=== PATIENT | male | born 1970 | race Caucasian/White ===

== ENCOUNTER 2021-04-22 12:51 | Emergency (ER) | payer BC, SELFPAY ==
[2021-04-22] VITALS (15 sets, daily range): BP systolic 140–171; BP diastolic 73–92; PULSE 82–104; RESP 18–20; TEMP 37–37.4; O2SAT 87–97
--- NOTE | 2021-04-22 13:47 | ED.GENADUL_ITS ---
Discharge Plan Disposition Patient Disposition: HOME Condition: Improving Discharge Details Clinical Impression: Pneumonia Primary Care Provider: Jorge Luis Potts ED Provider: Edward Navarro Home Meds and New Rx's Prescriptions: New cefdinir 300 mg capsule 300 mg PO Q12H 10 Days Qty: 20 RF: 0 Continued insulin lispro 100 unit/mL Insulin Pen See Protocol sliding scale dose SUBCUT QMEALS RF: 0 Lantus Solostar U-100 Insulin 100 unit/mL (3 mL) Insulin Pen 16 unit SUBCUT QPM RF: 0 montelukast [Singulair] 10 mg Tablet 10 mg PO DAILY RF: 0 Discharge Instructions Instructions: Pneumonia (ED) Additional Instructions: As we discussed, your COVID-19 test today was negative. Your chest x-ray does show evidence of pneumonia. You were given an initial IV dose of antibiotics and should start antibiotics tomorrow morning. We will ask our care management team to arrange a follow-up for you at [facility] for recheck. As we discussed I would advise obtaining a [id number] finger pulse oximeter. You may check home oxygen levels once or twice a day. Measurements should be taken indoors with the device on the middle or ring finger, no artificial nails or nail malay. Extremity should be warm prior to measurement. Do not except the first number that appears on the screen but observe for 30 to 60 seconds to identify the most common measurement. Return if your resting oxygen drops below 90% and is confirmed as such on a separate reading 10 minutes later. Home to rest this evening. Small, frequent sips of fluids to maintain hydration. Medical Decision Making 51-year-old male, type I diabetic, presents with 10 to 11 days of fever, chills, body ache, cough, decreased p.o. intake. Notes that his glucose has been running slightly high. He arrives with pulse of 104, blood pressure 160/79. His presentation is concerning for pneumonitis, viral versus bacterial. IV access established, given 2 L of fluid, Covid test obtained and patient referred for x-ray. Patient is a white count of 8.5, hematocrit 36, platelets 410. Chemistries reassuring with sodium 134, testing 4.4, chloride 97, bicarb 31, BUN 21, creatinine 0.9. SARS Cov 2 PCR negative. Chest x-ray does reveal diffuse linear opacities throughout the lung mustafa. I discussed with the patient that I am concerned this may still be a viral pneumonitis despite the negative Covid testing. I do feel compelled to treat him for walking pneumonia and is given ceftriaxone in the ED and then I will place him on a course of oral cephalosporin. Will arrange a follow-up for him in clinic in [place] for recheck. Discussed with him home oxygen monitoring with an [id number] oximeter. HPI General Mode of arrival: ambulatory . Date/Time Provider Initiated Documentation: 04/22/21 12:58 . Limitations to Documentation: no limitations . Information obtained by: patient . History of Present Illness 51 year old M presents to the emergency department with the chief complaint of 10 days of cough, body aches, fever, described as moderate, Quality is described as dull and constant, Patient reports no radiation. and it has been intermittent. No relieving factors improve symptom(s), No exacerbating factors reported . Patient notes cough, fever/chills and loss of appetite; denies chest pain, shortness of breath and syncope. Patient did receive the following treatments prior to arrival, NSAID Related Data Home Medications Medication Instructions Recorded Confirmed Lantus Solostar U-100 Insulin 16 unit SUBCUT QPM 04/22/21 04/22/21 cefdinir 300 mg PO Q12H 10 Days #20 cap 04/22/21 insulin lispro See Protocol SUBCUT QMEALS 04/22/21 04/22/21 montelukast [Singulair] 10 mg PO DAILY 04/22/21 04/22/21 Previous Rx's Medication Instructions Recorded cefdinir 300 mg PO Q12H 10 Days #20 cap 04/22/21 Allergies Allergy/AdvReac Type Severity Reaction Status Date / Time No Known Allergies Allergy Unverified 04/22/21 13:51 General Stated Complaint: RespSymp ELISEO: 3 Review of Systems Narrative: 8 systems reviewed: Fully immunized against COVID-19, glucose has been running high. Notes fever, chills, body ache. No known sick contacts. [facility] Social History Smoking/Tobacco Use Status: Never Smoking risk assessment performed?: Yes Alcohol Intake: never Exam Narrative Exam Narrative: GEN: awake, alert, oriented 3. Pleasant, well groomed, interactive. HEAD: Normocephalic, atraumatic ENT: Mucous membranes dry, oropharynx erythematous, no swelling or exudate, tympanic membranes visualized bilaterally., External ear exam unremarkable EYES: PERRL, EOMI NECK: Full ROM, no BLAS, no menigismus CHEST/RESP: Nontender, clear to auscultation bilateral, no wheeze/rhonchi/rales CARDIOVASCULAR: Regular and tachycardic, no murmur, rub nafisa. 2+ Rad pulse bilateral ABDOMEN: Soft, nontender, no mass. +Bowel sounds EXT: Full ROM, no edema, no rash Neuro: Grossly normal neurologic exam, conversant, interactive. Psych: Speech fluent, thoughts congruent, affect normal Course Vital Signs Vital signs: Vital Signs Temperature 37.2 C 04/22/21 13:17 Pulse 104 H 04/22/21 13:17 Respiratory Rate 20 04/22/21 13:17 Blood Pressure 160/79 H 04/22/21 13:17 Pulse Oximetry 94 04/22/21 13:17 Temperature 37.2 C 04/22/21 13:17 Temperature Source Skin 04/22/21 13:17 Pulse 104 H 04/22/21 13:17 Respiratory Rate 20 04/22/21 13:17 Respiratory Effort 04/22/21 13:24 Blood Pressure 160/79 H 04/22/21 13:17 Blood Pressure Position Sitting 04/22/21 13:17 Pulse Oximetry 94 04/22/21 13:17 Oxygen Delivery Method Room Air 04/22/21 13:17 Oxygen Flow Rate 0 04/22/21 13:17 Pain Level 3 04/22/21 13:17
[2021-04-22] MEDS: Normal Saline 1,000 ML 1000 ML IV ×2 (14:03→15:58)
[2021-04-22 14:17] LABS: Source Nasal/Nares
[2021-04-22 14:20] LABS: Abs Immature Grans 0.07 10^3/uL (0.0-0.06); Absolute Basophil Count 0.03 10^3/uL (0.0-0.2); Absolute Eosinophil Count 0.18 10^3/uL (0.0-0.7); Absolute Lymphocyte Count 1.29 10^3/uL (1.2-3.4); Absolute Monocyte Count 0.62 10^3/uL (0.1-0.8); Absolute Neutrophil Count 6.31 10^3/uL (1.2-6.7); Basophils % 0.4; Eosinophils % 2.1; HCT 36.1 % (40.0-50.0); HGB 12.5 g/dL (13.5-17.5); Immature Grans % 0.8; Lymphocytes % 15.2; MCH 29.6 pg (27.0-33.0); MCHC 34.6 % (32.0-36.0); MCV 85.5 fL (80-95); MPV 9.1 fL (8.0-11.0); Monocytes % 7.3; Neutrophils % 74.2; Nucleated RBC 0 %; Platelet Count 410 10^3/uL (130-400); RBC 4.22 10^6/uL (4.36-5.78); RDW 11.4 % (11.8-14.1); RDW-SD 35.4 fL
[2021-04-22 14:33] LABS: ALT 41 U/L (16-63); AST 52 U/L (15-37); Albumin 2.6 g/dL (3.4-5.0); Alkaline Phosphatase 114 U/L (46-116); Anion Gap 5.4 mmol/L (3-11); BUN 21 mg/dL (7-18); Bilirubin, Total 0.9 mg/dL (0.2-1.0); CO2 31.6 mmol/L (21.0-32.0); CREATININE 0.9 mg/dL (0.70-1.30); Calcium 8.8 mg/dL (8.5-10.1); Chloride 97 mmol/L (98-107); Glucose 176 mg/dL (74-106); Potassium 4.4 mmol/L (3.5-5.1); Sodium 134 mmol/L (136-145); Total Protein 7.4 g/dL (6.4-8.2)
--- NOTE | 2021-04-22 15:30 | DI.RAD_ITS ---
Exam(s) XR CHEST 2V PA LATERAL EXAM: XR CHEST 2V PA LATERAL CLINICAL HISTORY: cough. TECHNIQUE: 2D digital imaging was performed. COMPARISON: No exams were available for comparison FINDINGS: Heart size is normal. The mediastinum is not widened. Bilateral hyperinflation. Increased markings throughout both lung mustafa, relatively symmetrical. N o pleural effusions. No Rosemarie B lines IMPRESSION: Bilateral interstitial infiltrates.Possible chronic but also consider acute pathology including pneum onitis. Recommend appropriate testing. DATA REPOSITORY: RADIATION DOSE DELIVERED:
[2021-04-22 15:34] LABS: COVID-19 PCR Negative (Negative)
--- NOTE | 2021-04-22 16:26 | NUR.NOTE ---
To DI per cart with transporterNursing Note:
--- NOTE | 2021-04-22 16:41 | DI.VRAD_ITS ---
PROCEDURE INFORMATION: Exam: XR Chest Exam date and time: 04/22/2021 3:44 PM Age: 51 years old Clinical indication: Cough TECHNIQUE: Imaging protocol: XR of the chest. Views: 2 views. COMPARISON: No relevant prior studies available. FINDINGS: Lungs: There are diffuse linear opacities throughout the bilateral lung mustafa. Pleural spaces: No pleural effusion. No pneumothorax. Heart/Mediastinum: Unremarkable. No cardiomegaly. Bones/joints: Unremarkable. IMPRESSION: Diffuse linear opacities throughout the bilateral lung mustafa, concerning for pneumonia, which could be viral in nature. Correlate with laboratory testing. Differential diagnosis also includes pulmonary edema. Clinical correlation recommended. Dictated and Authenticated by: Geeta Camargo MD. Ordering:NORMA Leon MD
[2021-04-22] MEDS: Ketorolac 15 MG/ML VIAL IVP (17:30)
[2021-04-22] MEDS: Dexamethasone 4 MG/ML VIAL 8 MG IVP (17:32)
[2021-04-22] MEDS: cefTRIAXone 1 GM/50 ML BAG IVPB (17:35)
== END 2021-04-22 17:26 | disposition home or self-care (01) ==
PROVIDERS: Emergency Provider Emergency Medicine; PCP Family Medicine
DX: J18.9 Pneumonia, unspecified organism (principal); Z20.822 Contact with and (suspected) exposure to COVID-19; E10.9 Type 1 diabetes mellitus without complications
CPT/HCPCS: 36415; 36416; 80053; 82962; 87635; 87880; 96361; 96365; 96375; 99284; 71046; 85025; 87081; J0696; J1100; J1885

== ENCOUNTER 2021-04-22 20:54 | Emergency (ER) | payer BC, SELFPAY ==
[2021-04-22] VITALS (8 sets, daily range): BP systolic 154; BP diastolic 76; PULSE 90; RESP 18; TEMP 36.8; O2SAT 91–96
--- NOTE | 2021-04-22 21:23 | ED.GENADUL_ITS ---
Discharge Plan Disposition Patient Disposition: HOME Condition: Stable Discharge Details Clinical Impression: Pneumonia Primary Care Provider: Jorge Luis Potts ED Provider: Makayla Hart Home Meds and New Rx's Prescriptions: No Action insulin lispro 100 unit/mL Insulin Pen See Protocol sliding scale dose SUBCUT QMEALS RF: 0 Lantus Solostar U-100 Insulin 100 unit/mL (3 mL) Insulin Pen 16 unit SUBCUT QPM RF: 0 montelukast [Singulair] 10 mg Tablet 10 mg PO DAILY RF: 0 cefdinir 300 mg capsule 300 mg PO Q12H 10 Days Qty: 20 RF: 0 Discharge Instructions Instructions: Pneumonia (ED) Additional Instructions: At this time your oxygen saturation on room air has not dropped lower than 92%. Please take Tylenol or ibuprofen every 4-6 hours as needed for fever. Continue to take the antibiotic as previously prescribed. Follow up with primary care provider in 3-5 days. Return to ED sooner if any worsening or concerns. Increase oral fluids. Use the albuterol inhaler 1 or 2 puffs every 4-6 hours as needed for shortness of breath and/or wheezing. Do not use it more than 4 times in 24-hour.. If you feel you need to use the albuterol inhaler greater than 4 times please be seen sooner or return to the emergency department. Please rest. If you continue to feel worse you may choose to get retested for Covid. He did have a negative Covid swab here today. Referrals: Jorge Luis Potts MD [Primary Care Provider] - 5 days Medical Decision Making 51-year-old male presents to the ER for the second time today with chief complaint of low O2 sat at home using a purchased pulse oximeter, fever of 103. Patient states that he got discharged from the emergency room earlier today after being diagnosed with pneumonia and took a shower. He reported some increased diaphoresis and shortness of breath. Pulse oximeter was reading 84% to 88% on room air. He did take some Tylenol at home prior to arrival. Upon presentation to my initial exam he is afebrile, heart rate is 90 O2 sat is ranging from 92 to 96% on room air. Patient is anxious and tearful. He did have a previous negative Covid swab here he is fully vaccinated against Covid. He is upset about why he got pneumonia. At this time we will road test patient with oximeter and observe O2 saturation. We will give patient albuterol inhaler to see if this improves his oxygenation. 2210: Patient was road tested maintain oxygen saturation of 94% room air. Will give patient inhaler to go. I did discuss home care with him he verbalizes understanding. I did discuss taking Tylenol or ibuprofen every 2-4 hours as needed for fever. Patient verbalizes understanding and would rather go home versus be admitted. I did offer a pulse oximeter of ours to give to the patient. A I did discuss at length home care with patient and all their questions significant other. All other questions were answered to the best my ability they do verbalize understanding and are in agreement with plan. I did discuss rest, fluids, v itamin D, zinc, using albuterol inhaler every 4-6 hours, Tylenol ibuprofen. Checking O2 couple times a day. I also did discuss strict return instructions. Patient was observed in the emergency department for almost 2 hours with O2 sat greater than 90% consistently. HPI General Mode of arrival: ambulatory . Date/Time Provider Initiated Documentation: 04/22/21 20:56 . Limitations to Documentation: no limitations . Information obtained by: patient, family (Friend ER MD called in prior to patient return), RN notes reviewed and old records reviewed . HPI Narrative: 51-year-old male presents to the ER for the second time today with chief complaint of low O2 sat at home using a purchased pulse oximeter, fever of 103. Patient states that he got discharged from the emergency room earlier today after being diagnosed with pneumonia and took a shower. He reported some increased diaphoresis and shortness of breath. Pulse oximeter was reading 84% to 88% on room air. He did take some Tylenol at home prior to arrival. Upon presentation to my initial exam he is afebrile, heart rate is 90 O2 sat is ranging from 92 to 96% on room air. Patient is anxious and tearful. He did have a previous negative Covid swab here he is fully vaccinated against Covid. He is upset about why he got pneumonia. Related Data Home Medications Medication Instructions Recorded Confirmed Lantus Solostar U-100 Insulin 16 unit SUBCUT QPM 04/22/21 04/22/21 cefdinir 300 mg PO Q12H 10 Days #20 cap 04/22/21 04/22/21 insulin lispro See Protocol SUBCUT QMEALS 04/22/21 04/22/21 montelukast [Singulair] 10 mg PO DAILY 04/22/21 04/22/21 Previous Rx's Medication Instructions Recorded cefdinir 300 mg PO Q12H 10 Days #20 cap 04/22/21 Allergies Allergy/AdvReac Type Severity Reaction Status Date / Time No Known Allergies Allergy Unverified 04/22/21 13:51 General Stated Complaint: RespSymp ELISEO: 3 Review of Systems All systems reviewed & are unremarkable except as noted in HPI and below Constitutional Constitutional: Reports excessive sweating and Reports fever(s) Cardiovascular Cardiovascular: Reports dyspnea on exertion Respiratory Respiratory: Reports dyspnea on exertion Comments: Diagnosed with pneumonia Endocrine Endocrine: Reports excessive sweating [facility] Social History Smoking/Tobacco Use Status: Never Smoking risk assessment performed?: Yes Alcohol Intake: never Drug use: Never Substance use type: does not use Do you feel safe at home: Yes Do you feel safe in your relationship?: Yes Exam Narrative Exam Narrative: Constitutional: Alert and oriented x3. Appears stated age. Normal body habitus. Head: Normocephalic, no trauma. Eyes: Pupils PERRLA, Red reflex noted, EOM's intact. Eyelids symmetrical without lesions, discharge, or swelling. ENT: Bilateral TM's WNL, External ear normal to inspection, no mastoid TTP, swelling, or erythema, Nasal turbinates WNL, no nasal discharge. Normal dentition, Posterior pharynx WNL, no exudate. Chest: RRR, Normal S1, S2, distal pulses intact. Resp: Lungs clear to auscultation bilaterally, no wheezes, rales, or rhonchi. Musculoskeletal: Normal gait, 5/5 strength to all four extremities. Skin: No suspicious rashes or lesions. Capillary refill less than 2 sec. Neurologic: Cranial nerves II-XII intact. Alert and oriented x 3. DTR's intact. Hematologic/Lymphatic: No ecchymosis, no lymphadenopathy. Course Vital Signs Vital signs: Vital Signs Temperature 36.8 C 04/22/21 20:58 Pulse 90 04/22/21 20:58 Respiratory Rate 18 04/22/21 20:58 Blood Pressure 154/76 H 04/22/21 20:58 Pulse Oximetry 92 04/22/21 20:58 Temperature 36.8 C 04/22/21 20:58 Temperature Source Oral 04/22/21 20:58 Pulse 90 04/22/21 20:58 Respiratory Rate 18 04/22/21 20:58 Blood Pressure 154/76 H 04/22/21 20:58 Blood Pressure Position Sitting 04/22/21 20:58 Pulse Oximetry 92 04/22/21 20:58 Oxygen Delivery Method Room Air 04/22/21 20:58 Oxygen Flow Rate 0 04/22/21 20:58 Pain Level 0 04/22/21 20:58
== END 2021-04-22 22:40 | disposition home or self-care (01) ==
PROVIDERS: Emergency Provider Registered Nurse Emergency; PCP Family Medicine
DX: J18.9 Pneumonia, unspecified organism (principal); R50.9 Fever, unspecified
CPT/HCPCS: 99283

== ENCOUNTER 2021-04-28 18:04 | Outpatient (REF) | payer BC, SELFPAY ==
[2021-04-30 15:48] LABS: COVID-19 RT-PCR UVMMC Result Negative (Negative)
== END 2021-04-28 18:05 | disposition home or self-care (01) ==
LOC: NCHCN 18:04
PROVIDERS: PCP Family Medicine; Visit Provider Family Medicine
DX: R53.83 Other fatigue (principal); Z20.822 Contact with and (suspected) exposure to COVID-19
CPT/HCPCS: U0003

== ENCOUNTER 2021-04-30 03:33 | Outpatient (CLI) | payer BC, SELFPAY ==
[2021-04-30 12:18] LABS: ESR 29 mm/hr (0-15)
[2021-04-30 12:19] LABS: HCT 40.5 % (40.0-50.0); HGB 13.8 g/dL (13.5-17.5); MCH 29.6 pg (27.0-33.0); MCHC 34.1 % (32.0-36.0); MCV 86.9 fL (80-95); MPV 8.7 fL (8.0-11.0); Nucleated RBC 0 %; RBC 4.66 10^6/uL (4.36-5.78); RDW 11.4 % (11.8-14.1); RDW-SD 36.5 fL; WBC 8.45 10^3/uL (4.4-10.8)
[2021-04-30 13:04] LABS: Absolute Basophil Count 0.08 10^3/uL (0.0-0.2); Absolute Eosinophil Count 0.51 10^3/uL (0.0-0.7); Absolute Lymphocyte Count 2.37 10^3/uL (1.2-3.4); Absolute Monocyte Count 0.93 10^3/uL (0.1-0.8); Absolute Neutrophil Count 4.56 10^3/uL (1.2-6.7); Atypical Lymphocytes % 12; Diff Comment Manual Differential; Platelet Count 664 10^3/uL (130-400); RBC Morphology Normal
[2021-04-30 13:15] LABS: ALT 29 U/L (16-63); AST 36 U/L (15-37); Albumin 2.6 g/dL (3.4-5.0); Alkaline Phosphatase 114 U/L (46-116); Anion Gap 5.5 mmol/L (3-11); BUN 24 mg/dL (7-18); Bilirubin, Total 0.6 mg/dL (0.2-1.0); C-Reactive Protein 1.71 mg/dL (0.0-0.3); CO2 31.5 mmol/L (21.0-32.0); CREATININE 1.1 mg/dL (0.70-1.30); Calcium 9.6 mg/dL (8.5-10.1); Chloride 99 mmol/L (98-107); Glucose 157 mg/dL (74-106); Potassium 4.5 mmol/L (3.5-5.1); Sodium 136 mmol/L (136-145); Total Protein 7.4 g/dL (6.4-8.2)
[2021-05-01 11:13] LABS: Lyme Ab w Rflx to Lyme Confirm Negative (Negative)
[2021-05-02 18:58] LABS: Anaplasma phagocytophilum Negative (Negative); B. miyamotoi PCR Negative (Negative); Babesia divergens/MO-1 Negative (Negative); Babesia duncani Negative (Negative); Babesia microti Negative (Negative); Ehrlichia chaffeensis Negative (Negative); Ehrlichia ewingii/canis Negative (Negative); Ehrlichia muris eauclairensis Negative (Negative)
== END 2021-04-30 03:34 | disposition home or self-care (01) ==
LOC: LBO 03:33
PROVIDERS: PCP Family Medicine; Visit Provider Family Medicine
DX: Z20.822 Contact with and (suspected) exposure to COVID-19 (principal); R50.9 Fever, unspecified; R53.83 Other fatigue
CPT/HCPCS: 36410; 80053; 85652; 87040; 87798; 85025; 86140; 86618

== ENCOUNTER 2021-07-15 15:01 | Outpatient (REF) | payer BC, SELFPAY ==
--- NOTE | 2021-07-15 14:00 | SKI_PTH ---
PATIENT: Jim Wesley LOC: [facility] U#:[id number] AGE/SX: 51/M ROOM: RE07/15/[address]: Krzysztof Fortune : 1970 BED: DIS: 07/15/2021 SPEC #: [id number] RECD: 07/16/21 12:49 STATUS: OMAYRA REMiguel Angel #: [id number] JOHNSON: 07/15/21 14:[address]: Krzysztof Fortune DEPT: Surgical Specimen RECD BY: Vera Valdez ENTERED: 07/16/21 12:49 SP TYPE: HELLEN POSEY DR: Amaury Lawrence DNP Tissues: 1 - SKIN BIOPSY(SHAVE/PUNCH) Procedures: SKIN LEVEL 4 Comments: [id number]
[2021-07-15 21:38] LABS: Abs Immature Grans 0.16 10^3/uL (0.0-0.06); Absolute Basophil Count 0.03 10^3/uL (0.0-0.2); Absolute Eosinophil Count 0.01 10^3/uL (0.0-0.7); Absolute Lymphocyte Count 1.76 10^3/uL (1.2-3.4); Absolute Monocyte Count 0.56 10^3/uL (0.1-0.8); Absolute Neutrophil Count 5.85 10^3/uL (1.2-6.7); Basophils % 0.4; Eosinophils % 0.1; HCT 40.4 % (40.0-50.0); Immature Grans % 1.9; MCH 29.7 pg (27.0-33.0); MCHC 34.7 % (32.0-36.0); MCV 85.6 fL (80-95); MPV 9.9 fL (8.0-11.0); Monocytes % 6.7; Neutrophils % 69.9; Nucleated RBC 0 %; Platelet Count 442 10^3/uL (130-400); RBC 4.72 10^6/uL (4.36-5.78); RDW-SD 37.4 fL; WBC 8.37 10^3/uL (4.4-10.8)
[2021-07-17 12:27] LABS: HIV-1/2 Ag & Ab Screen Reactive (Negative)
[2021-07-17 13:39] LABS: COVID-19 RT-PCR UVMMC Result Negative (Negative)
[2021-07-23 15:18] LABS: HIV 1 Ab Diff Positive (Negative)
[2021-07-23 15:19] LABS: HIV 2 Ab Diff Negative (Negative)
== END 2021-07-15 15:02 | disposition home or self-care (01) ==
LOC: NCHCN 15:01
PROVIDERS: PCP Nurse Practitioner Family; Visit Provider Family Medicine
DX: R09.82 Postnasal drip (principal); Z20.822 Contact with and (suspected) exposure to COVID-19; Z11.4 Encounter for screening for human immunodeficiency virus [HIV]; B20 Human immunodeficiency virus [HIV] disease; C46.0 Kaposi's sarcoma of skin
CPT/HCPCS: 86701; 86702; 87389; U0003; 85025; 88305

== ENCOUNTER 2021-07-16 02:59 | Outpatient (REF) | payer BC, SELFPAY ==
[2021-07-16 15:47] LABS: Abs Immature Grans 0.36 10^3/uL (0.0-0.06); Absolute Basophil Count 0.04 10^3/uL (0.0-0.2); Absolute Eosinophil Count 0.04 10^3/uL (0.0-0.7); Absolute Lymphocyte Count 1.62 10^3/uL (1.2-3.4); Absolute Monocyte Count 0.41 10^3/uL (0.1-0.8); Absolute Neutrophil Count 4.69 10^3/uL (1.2-6.7); Basophils % 0.6; Eosinophils % 0.6; HCT 38.7 % (40.0-50.0); HGB 13.4 g/dL (13.5-17.5); Lymphocytes % 22.6; MCHC 34.6 % (32.0-36.0); MCV 86.8 fL (80-95); Monocytes % 5.7; Neutrophils % 65.5; Nucleated RBC 0 %; Platelet Count 414 10^3/uL (130-400); RBC 4.46 10^6/uL (4.36-5.78); RDW 11.9 % (11.8-14.1); RDW-SD 38.1 fL; WBC 7.16 10^3/uL (4.4-10.8)
[2021-07-16 16:40] LABS: ALT 22 U/L (16-63); AST 23 U/L (15-37); Albumin 3.3 g/dL (3.4-5.0); Alkaline Phosphatase 101 U/L (46-116); Anion Gap 7.2 mmol/L (3-11); BUN 20 mg/dL (7-18); CO2 30.8 mmol/L (21.0-32.0); CREATININE 0.9 mg/dL (0.70-1.30); Calcium 9.4 mg/dL (8.5-10.1); Chloride 96 mmol/L (98-107); Glucose 260 mg/dL (74-106); Potassium 4.6 mmol/L (3.5-5.1); Sodium 134 mmol/L (136-145); Total Protein 7.8 g/dL (6.4-8.2)
[2021-07-17 10:00] LABS: HBs Antibody, Quant 115.6 mIU/mL (See Note); Hepatitis B Surface Ab Positive (See Note)
[2021-07-17 10:15] LABS: Hepatitis C Ab w Rflx HCV PCR Negative (Negative)
[2021-07-17 11:05] LABS: Syphilis Serology (RPR) Negative (Negative)
[2021-07-17 11:09] LABS: Hep A Total Ab w Rflx IgM Negative (Negative)
[2021-07-17 12:57] LABS: HIV 1 RNA Qualitative Detected copies/mL (Undetected); HIV 1 RNA Quantitative 287000 copies/mL (Undetected)
[2021-07-17 15:44] LABS: 4/8 Ratio 0.02 (>=0.90); Absolute CD3 1225 Cells/uL (840-2,669); Absolute CD8 1141 Cells/uL (154-1,097); CD3 74 % (56-84); CD4 2 % (31-64); CD8 69 % (9-39)
[2021-07-17 16:50] LABS: Hep B Core Antibody Positive (Negative)
[2021-07-17 16:51] LABS: Hepatitis B Surface Ag Positive (Negative)
[2021-07-18 12:30] LABS: TB Interpretation Negative (Negative); TB1 Ag minus Nil 0.01 IU/ml
[2021-07-23 20:13] LABS: Doravirine SUSC; Emitricitabine SUSC; HIV-1 Genotypic PR-RT Drug Res INTERP; Lopinavir and Ritonavir SUSC; Tipranavir andRitonavir SUSC
== END 2021-07-16 03:00 | disposition home or self-care (01) ==
LOC: LBN 02:59
PROVIDERS: Nurse Practitioner Family; PCP Nurse Practitioner Family; Visit Provider Nurse Practitioner Family
DX: B20 Human immunodeficiency virus [HIV] disease (principal); E10.9 Type 1 diabetes mellitus without complications
CPT/HCPCS: 80053; 86704; 86706; 86709; 86803; 87340; 87536; 85025; 86359; 86360; 86480; 86592; 87901

== ENCOUNTER 2021-07-16 13:30 | Outpatient (CLI) | payer BC, SELFPAY ==
--- NOTE | 2021-07-21 15:15 | W.CCNOTE ---
Date of service: 07/16/21 Time of Service: 13:27 Comprehensive Care Clinic Note Note: [facility] [address] [place] [address] Initial Comprehensive Care Clinic Visit Information New Diagnosis of HIV (2 hours) Name: Jim Wesley Date of : Primary Care Provider: Aruna Potts MD, [facility] Date of Service: 07/16/2021, WED SUBJECTIVE CC: ?I had a positive oral HIV test on Wednesday. My , Yunior, and I did them and he is negative. Yesterday, urgent care kaushik blood for tests and I?m Covid negative. My and I have had congestion and a cough for a couple weeks and had 4 other negative Covid tests. I had a spot on my leg and the doctor took it off for biopsy. My thinks it?s a Kaposi?s lesion. He was in [facility] when HIV broke open, was active in [employer] and had a lot of friends . We are very stressed and emotional about all this. I?m a type one diabetic diagnosed at age 13. I have very tight control with Humalog and Lantus. I know my sugars are up now, we are so upset, I can?t eat so I haven?t taken my insulin for a day.? HPI: His last negative HIV test was over 20 years ago as they have been for 25 years. He revealed Wednesday night that he had a brief sexual encounter about 7 years ago and afterward was not sick at all. Monogamous since and before. Blood draw yesterday at Urgent Care for CBCD, Covid19 pcr and HIV ? AB the later still pending. This morning they called the [facility] and this appointment was arranged. Bartolo started with URI symptoms around with fatigue, nasal congestion, cough that is intermittently productive of dark yellow sputum and his , Yunior, started with the same a day or two later. Bartolo has a history of Asthma and off and on since the URI started will feel some dyspnea but no wheezing. He has a rescue inhaler of Albuterol but has not needed to use it. He is still exercising but not with the same exertion to fatigue as usual. They are very avid outdoors exercisers and VERY conscious of Covid 19 avoidance measure for instance, ordering groceries on line and having them brought to the car, drive through drug store pickup and avoiding contact indoors other than medical appointments. They tested for Covid a few times anyway and all results were negative. This became more concerning for both of them because it was lingering and was reminiscent of the onset of a respiratory illness that necessitated an ER visit and ?heavy antibiotics? for pneumonia in April. ?I knew I was sick but still pushed myself in the fall to climb mountains and keep up with my usual rigorous exercise regimen,? Bartolo says. They both became alarmed that he was sick again so soon and that Yunior is also sick with the same symptoms. ROS Constitutional: Weight loss of about 10 lbs in Apr but put on 6 lbs since. Tires easily and has some ongoing fatigue since April. ?I?m sleeping a lot more than usual.? Appetite is good and staying hydrated up until yesterday. Fever this past weekend up to 102.5 with chills and night sweats but states he had night sweats over past couple weeks of recent URI. Skin: Had a ?purplish spot? on the lateral right thing that was removed and sent for biopsy. Head: Some vague headache Eyes: Has some visual disturbance ? may be sugars, has corrective lenses, no recent dilated eye exam Ear/Nose/Throat: Had some discomfort swallowing during the pneumonia in April and blamed the antibiotic which were also blamed for the thrush he developed after completing the course of antibiotics. No recent reoccurrence of these sensations. Mouth/Teeth: Denies tender mucosa or oral lesions, has dry mouth today ? ?My sugars are up.? Neck: Denies stiffness or masses CV: No palpitations or flutters Respiratory: Some tight sensation ?at the end? of inspiration but no wheezing, cough is intermittent and sometimes productive of scant dark yellow sputum GI: Has ongoing upper GI upset since April with ?burps? and some acid. Stool is looser than usual but not diarrhea. : Denies penial or rectal lesions Musculoskeletal: Had a fracture of his right tibia in 2018 while hiking needing ORIF - still has a marge Endocrine: DM T1 since age 13 ? last Hgb A1C 6.3 this past fall, No H/O thyroid abnormalities Lymphatic: Has not noted any enlarged lymph nodes Hematologic: No unusual bleeding or bruising, No epistaxis Immunologic: Has had all childhood vaccines Psychiatric: ?I tend to the melancholy side? but never major depression Dx or suicidal ? No psych hospitalizations Allergies/Sensitivities: NKDA, Has environmental allergies Current Medications: Singulair 10 mg daily Albuterol prn ? ?I never need it? Lantus 16 to 20 iu sq q midnight Humalog total average 40 iu sq divided daily, ?I do count carbs? Ca+ w Vitamin D Acidophilus Past medications Ineffective: None Known Past Medical History: T1 DM since age 13, Asthma ? controlled with Singulair and limiting environmental exposures Past Surgical History: 2018 ? appendectomy, umbilical hernia repair. ORIF R tib fracture 2019 Past Psychiatric History: Denies Social History: Place of : [place], [place] Gender: M Racial Distribution: Primary Language: Salvadorean Secondary Language(s): None Current County, State of Residence: [place], [place] ? recently moved from [facility]. Prior to that lived in [facility] for many years. Marital Status: to his for 25 years Family Size: 2 Pets: 35 year old turtle, grew up with a cat but never emptied litter, no Lizard or Bird pet Hx Housing: permanently housed Incarceration History: None History: None Highest Grade Completed: undergraduate college Able to read? Yes Employment: Type of work presently: Self-employed as a nonprofit organization freelance copywriter Income(s)/Means of Financial Support: Self-employed and his in employed Occupational Exposures: Non sig Health Insurance: private [facility], RX coverage through [employer] Other payment source: self-pay Coverage Issues: None at the present time Substance Abuse History: Tobacco: No smoked for about 5 years in college, quit ETOH: None Illicit Drug Use: None, no Hx Rx Drug Dependence: Denies Other Psychosocial Considerations: Relationship strain with these revelations and Dx Family History Mother: of heart failure at age 70, most likely caused by XRT for Hodgkin?s when she was a younger woman. Father: Siblings: 2 sisters, 2 brothers ? oldest sister w Kidney cancer and adrenal w mets? Children: None Grand Parents: Heart Extended: M Uncle w DM Immunization History Tetanus/TDAP: 12/10/2017 Hepatitis A: No Hepatitis B: Yes Flu Vaccine: 06/19/2021 Pneumovax 23: 10/07/2017 Prevnar 13: No Singrix: No Menactra: No other: Covid 19 ? Pfizer ? 11/16/2020, 12/07/2020, 06/19/2021 Health Maintenance Lipids/Glucose: Frequently monitored by PCP ID Screenings PPD/Quantiferron: No, will be ordered today Colonoscopy: yes Travel: All [place] states, many [place], [place], Lived in [place] right after college ? traveled through [place], [place], [place], Visited [place]. OBJECTIVE Height: 6?0? Weight: 156#, (usually 163#) Vital Signs: 97.2, 104, 16, 142/80, SAO2% 97/98. General: WDWNL, AINAD Skin: W/D pale ? no lesions noted Head: NCAT Eyes: non-icteric PERRL, discs flat Ears/Nose: clear Mouth/Teeth: no erythema or exudate ? no lesions noted Pharynx: w/o edema, uvula midline Neck: supple, NT CV/Pulses: 2/4 pulses x 4, RRR tachy, no M or G Chest Lungs: diminished in the left base otherwise clear Abdomen: NABS, ND, NT No OGM or masses palpated Extremities: No edema, symmetric Musculoskeletal: FROM all joint, no swelling/effusions Neuro: Strength 5/5 x 4, gait strong and steady, No tremor or tics : NE Rectal: NE Lymphatic: No palpable nodes in neck, axilla or groin Psychiatric: - appearance: well groomed, - eye contact: fair - attitude: cooperative - speech: clear/coherent - affect: appropriate - mood: upset, anxious, tearful, - memory: short-term intact, nursing home intact - self-perception: wnl - motor activity: normal - orientation: intact - attention: intact - thought content: wnl - perceptions: wnl - judgement: intact - insight: good ASSESSMENT/PLAN New DX HIV/AIDS - Await LAb results of blood work drawn here at clinic today and taken to the lab as listed below. Monitor current URI symptoms and go to ER if tight dyspnea, high fever, other worrisome symptoms, even though the Covid testing was negative x 5 during this few weeks of symptoms. MD visit scheduled: August 11 approx. 12 noon, sooner as needed, with Dr. Jane. Release of Records: to be signed for prior providers Social Work/Psychiatry referral: Not at this time, paperwork to be started for [facility] once lab work results are all available. Will get information for his RX insurance started as well. Lab work ordered - pending Serum HIV Antibody (Ab) from yesterday, RNC PCR QN drawn today - CBCD ? repeated today - CD4/8 Immunodeficiency Panel ? drawn today - Comprehensive Metabolic Profile ? drawn today - LDH/GGT ? drawn today - Hepatitis Screening HAV tAb, HBV Ag/sAb/cAb ? drawn today - Syphilis Screening/RPR ? drawn today - GC, Chlamydia screen (first AM void) ? not done I will call Bartolo on Wednesday (in 2 days) with lab results available at that time and formulate further plan. Provider of Care: Lubna Varner, MSN, GANG LEADER Addendum #1: 07/18/2021 ? called Bartolo with DX of HIV/AIDS based on Lab results of a + HIV Viral Load of [id number], and a CD4 absolute and % of 27 and 2. The HBV Ag was + and he will need HBV DNA PCR Quantitative for confirmation of active HBV disease. His Transaminases are normal and other LFTs are fine. We discussed this DX and the needed for PCP prophylaxis. He understands the DX and will get the RX at the pharmacy today and start it. He will discuss all this with his today and I will call them tomorrow, 07/19/2021 to help with any questions or concerns. Consulted with Dr. Jane and Rafael [facility] of [facility] called: RX Bactrim DS, #30, 1 tab a day, rfs #3. He will most likely be started on Biktarvy which will cover for the HBV is active infection is present. Latanya Varner NP Addendum #2: 07/19/2021 ? call to Bartolo and confirmed Lab results. He was able to get the Bactrim DS and started it late yesterday. They are very concerned about the low CD4 count and if he should just rest all the time and not go out. He agrees to do light exercise and eat at will and keep up with his DM monitoring and insulin as normal, just don?t push exercise excessively to avoid exhaustion. Stay hydrated. Rest as needed. Continue the excellent Covid 19 avoidance measures. He will monitor his temp and if his URI symptoms worsen such that he triggers Asthma, he will go to the ER. So far he has not had any progression of the URI. We will talk and fill in all the info for the PA for [facility] Eug[facility]. ? Latanya Varner NP
== END 2021-07-16 13:31 | disposition home or self-care (01) ==
LOC: CCC 07-18 14:36
PROVIDERS: PCP Nurse Practitioner Family; Visit Provider Nurse Practitioner Family
DX: B20 Human immunodeficiency virus [HIV] disease (principal); E10.9 Type 1 diabetes mellitus without complications
CPT/HCPCS: 36415; 99204; 99417

== ENCOUNTER 2021-07-21 10:25 | Outpatient (CLI) | payer BC, SELFPAY ==
--- NOTE | 2021-07-21 16:14 | W.CCNOTE ---
Date of service: 07/21/21 Time of Service: 10:25 Comprehensive Care Clinic Note Note: [facility] [address] [place] [address] [facility] Visit for Medical Follow Up Name: Martin Wesley Medical Record [id number] Date of : 1970 Primary Care Provider: Aruna Potts MD, [facility] Date of Service: 1970 SUBJECTIVE CC: ?I had fever up to 102.5 and shaking chills this weekend. I?ve been taking Tylenol 100mg every 6 hours and Motrin 400mg every opposite 6 hours spacing them out by 3 hours. This morning I feel better and have not had fever.? HPI: Bartolo was Dx with HIV/AIDS last week after testing when he developed another URI that has persisted for a few weeks. He started Bactrim DS on Wednesday and has not missed taking one daily. He had started with congestion and some cough and a day or two later he , Yunior started with the same symptoms. This was somewhat reminiscent of a persistent URI that developed in to pneumonia in Apr. It was felt that was probably a viral pneumonia because it really seemed like it did not respond to the antibiotics but rather resolved on it?s own a couple weeks after the antibiotics were completed. He developed thrush after the course of antibiotics and that resolves with lozenges. He has had a little dyspnea ?at the end of inspiration? but would have this often with URI as he is asthmatic. He has not felt the need to use his rescue inhaler of Albuterol. He has T1 DM since the age of 13 and monitors his sugars closely with tight control with short and long acting insulin. ROS Constitutional: Fatigue, somewhat diminished appetite, wants to sleep. Weight is not back to his usual 163# as he lost 10 # during the fall pneumonia. Skin: Denies rash at this time. Had a lesion on his right leg that was removed and is awaiting pathology report Head: Denies trauma, global headache Eyes: some visual disturbance ? thinks sugars, has glasses Ear/Nose/Throat: Neg Mouth/Teeth: No tenderness like thrush Neck: No pain or stiffness CV: Denies chest pain, pressure, palpitations Respiratory: as above in HPI, scant productive cough which is not frequent GI: Some heartburn and upper GI upset but No N/V/D/C or rectal bleeding : Negative Musculoskeletal: Denies joint or back pain Endocrine: No polyuria, polydipsia; heat or cold intolerance Lymphatic: Has not noted any enlarged nodes Hematologic: No unusual bleeding, bruising Immunologic: CD4 count is 27 Psychiatric: + Anxiety, denies SI/HI Allergies/Sensitivities: NKDA, + environmental allergies Current Medications: Singulair Albuterol prn Humalog ? average 40 iu in divided doses / day Lantus 16 ? 20 iu q MN Ca+ dull w Vit D Acidophilus For extensive past medical, surgical family and social HX see note date 07/16/2021 OBJECTIVE Temp:98.1, Pulse:88, Respirations:16 w normal effort, Blood Pressure: 128/70 General: WDWNL, AINAD Skin: W/D, no rash or lesions noted Eyes: non icteric Ears, Nose, Mouth: clear Neck: Supple, Thyroid non palp, no swelling/crepitus Chest: Full, equal expansion, diminished breath sounds in left base ow clear (maybe more pronounced that 4 days ago) CV: RRR, No MCRG, extremity pulses 2/4 w symmetry Neuro: Gait strong and steady Lymphatic: No palpable enlarged nodes neck or axilla Psychiatric: - appearance: slightly unkempt - eye contact: good - attitude: cooperative - speech: normal - affect: appropriate - mood: anxious yet somewhat depressed - memory: short term intact, terminal clerk intact - motor activity: normal - orientation: intact - attention: intact - thought process: logical - thought content: normal - insight: good ASSESSMENT/PLAN HIV/AIDS w fever and respiratory symptoms x a few weeks now worsening over the past weekend ? Scheduled a PA & Lateral CXR and blood draw for CBCD, LDH, Basic metabolic and HBV DNA PCR Quant. Due to Covid precautions, these will be done tomorrow morning and he is to present to the Lab/Radiology entrance and call before entering. He will be met and PPE will be donned wit help of staff. He will have the CXR done first and then the lab will come to radiology and drawn the blood. He will then be escorted back out and helped to doff the PPE. We will contact him with further instructions when results are available. In the meantime continue the Bactrim DS. A PA has been sent to [facility] via [employer] website for the Bictarvy and an RX will be called into [facility] tomorrow for this medication so he is able to start it Wed or . We discussed IRS and we will stay in close contact as he is on-loading ART. Dr. Jane will be kept UTD on all of this. Provider of Care: Lubna Varner, MSN, FAMILY SERVICES ASSISTANT
== END 2021-07-21 10:26 | disposition home or self-care (01) ==
LOC: CCC 15:27
PROVIDERS: PCP Nurse Practitioner Family; Visit Provider Nurse Practitioner Family
DX: B20 Human immunodeficiency virus [HIV] disease (principal); R50.9 Fever, unspecified
CPT/HCPCS: 99204

== ENCOUNTER 2021-07-22 01:14 | Outpatient (CLI) | payer BC, SELFPAY ==
--- NOTE | 2021-07-22 | DI.RAD_ITS ---
Exam(s) XR CHEST 2V PA LATERAL EXAM: XR CHEST 2V PA LATERAL CLINICAL HISTORY: FEVER, DYSPNEA, COUGH,RECENT AIDS DX,NEG COVID 07/15/21,IMMUNOCOMPROMISED TECHNIQUE: 2D digital imaging was performed of the chest. Two images were obtained. PA and lateral views were obtained. COMPARISON: CR,XR XR CHEST 2V PA LATERAL from 04/22/2021 FINDINGS: MEDIASTINUM: Normal. HEART: Normal. PULMONARY VASCULATURE: Normal. LUNGS: There is a right perihilar infiltrate. There are increased lung markings in the left lung bas e. PLEURAL SPACE: No pleural effusion or pneumothorax. BONE:Within normal limits for the patient's age. OTHER FINDINGS:Normal. IMPRESSION: Multifocal infiltrates suspicious for pneumonia. DATA REPOSITORY: RADIATION DOSE DELIVERED:
[2021-07-22 12:07] LABS: HCT 37.9 % (40.0-50.0); HGB 12.7 g/dL (13.5-17.5); MCH 29.3 pg (27.0-33.0); MCHC 33.5 % (32.0-36.0); MCV 87.3 fL (80-95); MPV 9.1 fL (8.0-11.0); Nucleated RBC 0 %; Platelet Count 473 10^3/uL (130-400); RBC 4.34 10^6/uL (4.36-5.78); RDW 11.9 % (11.8-14.1); RDW-SD 38.4 fL; WBC 6.67 10^3/uL (4.4-10.8)
[2021-07-22 12:30] LABS: Absolute Basophil Count 0.07 10^3/uL (0.0-0.2); Absolute Eosinophil Count 0.07 10^3/uL (0.0-0.7); Absolute Lymphocyte Count 0.93 10^3/uL (1.2-3.4); Absolute Monocyte Count 0.33 10^3/uL (0.1-0.8); Absolute Neutrophil Count 5.27 10^3/uL (1.2-6.7); Atypical Lymphocytes % 7; Diff Comment Manual Differential; RBC Morphology Normal
[2021-07-22 13:16] LABS: Anion Gap 4.8 mmol/L (3-11); BUN 26 mg/dL (7-18); CO2 30.2 mmol/L (21.0-32.0); CREATININE 1.1 mg/dL (0.70-1.30); Calcium 10.1 mg/dL (8.5-10.1); Chloride 100 mmol/L (98-107); Glucose 313 mg/dL (74-106); LDH 265 U/L (85-227); Potassium 5.1 mmol/L (3.5-5.1); Sodium 135 mmol/L (136-145)
[2021-07-25 18:27] LABS: HBV DNA Detect/Quant, PCR 55 IU/mL (Undetected)
== END 2021-07-22 01:34 ==
PROVIDERS: PCP Nurse Practitioner Family; Visit Provider Nurse Practitioner Family
DX: B20 Human immunodeficiency virus [HIV] disease (principal); R50.9 Fever, unspecified; R05.9 Cough, unspecified; R06.09 Other forms of dyspnea; R91.8 Other nonspecific abnormal finding of lung field
CPT/HCPCS: 36415; 80048; 87517; 71046; 83615; 85025

== ENCOUNTER 2021-07-28 11:21 | Outpatient (REF) | payer BC, SELFPAY ==
[2021-07-28 10:17] LABS: Abs Immature Grans 0.36 10^3/uL (0.0-0.06); Absolute Basophil Count 0.04 10^3/uL (0.0-0.2); Absolute Eosinophil Count 0.34 10^3/uL (0.0-0.7); Absolute Neutrophil Count 5.48 10^3/uL (1.2-6.7); Basophils % 0.4; Eosinophils % 3.4; HCT 38.2 % (40.0-50.0); Immature Grans % 3.6; Lymphocytes % 32.6; MCH 29.9 pg (27.0-33.0); MCV 87.8 fL (80-95); MPV 9.6 fL (8.0-11.0); Monocytes % 5.9; Neutrophils % 54.1; Nucleated RBC 0 %; Platelet Count 598 10^3/uL (130-400); RBC 4.35 10^6/uL (4.36-5.78); RDW 11.8 % (11.8-14.1); RDW-SD 37.6 fL; WBC 10.12 10^3/uL (4.4-10.8)
== END 2021-07-28 11:22 | disposition home or self-care (01) ==
LOC: LBN 11:21
PROVIDERS: PCP Nurse Practitioner Family; Visit Provider Internal Medicine Infectious Disease
DX: B20 Human immunodeficiency virus [HIV] disease (principal); Z79.899 Other long term (current) drug therapy
CPT/HCPCS: 85025

== ENCOUNTER 2021-08-13 15:08 | Outpatient (REF) | payer BC, SELFPAY ==
[2021-08-13 17:02] LABS: ALT 32 U/L (16-63); AST 32 U/L (15-37); Albumin 3.9 g/dL (3.4-5.0); Alkaline Phosphatase 108 U/L (46-116); Anion Gap 6.8 mmol/L (3-11); BUN 27 mg/dL (7-18); Bilirubin, Total 1.3 mg/dL (0.2-1.0); CO2 30.2 mmol/L (21.0-32.0); Calcium 9.1 mg/dL (8.5-10.1); Chloride 101 mmol/L (98-107); Glucose 99 mg/dL (74-106); Potassium 3.9 mmol/L (3.5-5.1); Sodium 138 mmol/L (136-145); Total Protein 8.2 g/dL (6.4-8.2)
== END 2021-08-13 15:09 | disposition home or self-care (01) ==
LOC: LBN 15:08
PROVIDERS: PCP Family Medicine; Visit Provider Nurse Practitioner Family
DX: B20 Human immunodeficiency virus [HIV] disease (principal); Z79.899 Other long term (current) drug therapy
CPT/HCPCS: 80053

== ENCOUNTER 2021-09-03 11:17 | Outpatient (REF) | payer BC, SELFPAY ==
[2021-09-03 11:32] LABS: Abs Immature Grans 0.06 10^3/uL (0.0-0.06); Absolute Basophil Count 0.06 10^3/uL (0.0-0.2); Absolute Eosinophil Count 0.19 10^3/uL (0.0-0.7); Absolute Lymphocyte Count 3.37 10^3/uL (1.2-3.4); Absolute Monocyte Count 0.69 10^3/uL (0.1-0.8); Absolute Neutrophil Count 1.67 10^3/uL (1.2-6.7); Eosinophils % 3.1; HCT 41.9 % (40.0-50.0); HGB 14.4 g/dL (13.5-17.5); Lymphocytes % 55.8; MCHC 34.4 % (32.0-36.0); MCV 90.3 fL (80-95); MPV 9.9 fL (8.0-11.0); Monocytes % 11.4; Neutrophils % 27.7; Nucleated RBC 0 %; Platelet Count 258 10^3/uL (130-400); RBC 4.64 10^6/uL (4.36-5.78); RDW 14.1 % (11.8-14.1); RDW-SD 46.9 fL; WBC 6.04 10^3/uL (4.4-10.8)
[2021-09-03 13:10] LABS: ALT 38 U/L (16-63); AST 32 U/L (15-37); Albumin 3.9 g/dL (3.4-5.0); Alkaline Phosphatase 87 U/L (46-116); Anion Gap 8.3 mmol/L (3-11); BUN 19 mg/dL (7-18); Bilirubin, Total 1.5 mg/dL (0.2-1.0); CO2 29.7 mmol/L (21.0-32.0); CREATININE 0.9 mg/dL (0.70-1.30); Chloride 100 mmol/L (98-107); Glucose 110 mg/dL (74-106); Potassium 4.3 mmol/L (3.5-5.1); Sodium 138 mmol/L (136-145)
[2021-09-04 12:00] LABS: HIV 1 RNA Qualitative Detected copies/mL (Undetected); HIV 1 RNA Quantitative 79 copies/mL (Undetected)
[2021-09-05 09:07] LABS: 4/8 Ratio 0.04 (>=0.90); Absolute CD3 2894 Cells/uL (840-2,669); CD3 87 % (56-84); CD4 3 % (31-64); CD8 81 % (9-39)
== END 2021-09-03 11:18 | disposition home or self-care (01) ==
LOC: LBN 11:17
PROVIDERS: PCP Family Medicine; Visit Provider Nurse Practitioner Family
DX: B20 Human immunodeficiency virus [HIV] disease (principal); Z79.899 Other long term (current) drug therapy
CPT/HCPCS: 80053; 87536; 85025; 86359; 86360

== ENCOUNTER 2021-11-10 09:25 | Outpatient (CLI) | payer BC, SELFPAY ==
--- NOTE | 2021-11-10 09:35 | CCCE_ITS ---
Comprehensive Care Clinic Note Note: S: Jim is contacted at his request this morning for a telehealth visit for an acute problem. He is aware of telehealth HIPPA privacy and agrees to this encounter. Jim has had about 1 week of increasing rash on his face that he has had in the past diagnosed by a Dermatology as eczematous dermatitis for which he was RXd Doxycycline 100 mg bid x 6 weeks and a topical gel of metranidazole 0.75% which he used in the beginning stages of treatment but was able to stop after the Dixycycline took effect. He says he has not had a flare of this for a few years and dos not know what is the trigger but thinks stress has something to do with it. He did not want to go to the urgent care clinic because he want to avoid taking anything that will interact with his HIV related medications. He has not taken anything for this at this point and has keep the face clean and dry avoiding harsh soap or cleansers. he does not wear makeup. ROS: No fever, chills, night sweats, swelling of the face or open area w drainage, Minimal discomfort, no pain. Able to open his mouth and eyelids easily. No involvement with his eyelids or ear canals. Allergies:KKDA, + environmental Medications Biltarvy, atovaqoune, Insulin - Novolog Flexpen tid per sliding scale, Solostar (Lantus) 100 units/mL 16 u q hs, Singular 10 mg tab daily OBJ: No vital signs due to telehealth visit, speech clear, coherent Red, scaling rash of the face in the nasal labial fold predominantly, w/o edema or induration A/P: Eczematous Dermatitis of the face w/o S&S of secondary infection RX doxycycline 100 mg bid x 6 weeks - #45/1 rf and metranidozole 0/75% cream (the pharmacy did not have the gel) apply bid prn #45 GM tube was the smallest they had. Keep clear and dry and continue to avoid hash saop or cleanser. NO change in other medications. Will be due for HIV follow up blood work at the end of this month or early in . he is asked to [facility]anda the hospital for an appointment and an order slip id taken to the lab and mailed to him. Follow visit [facility] Dr. Jane will be determined after the results are received.
== END 2021-11-10 09:26 | disposition home or self-care (01) ==
LOC: CCC 09:27
PROVIDERS: PCP Family Medicine; Visit Provider Nurse Practitioner Family

== ENCOUNTER 2021-11-26 04:41 | Outpatient (CLI) | payer BC, SELFPAY ==
[2021-11-26 14:58] LABS: Abs Immature Grans 0.01 10^3/uL (0.0-0.06); Absolute Basophil Count 0.05 10^3/uL (0.0-0.2); Absolute Eosinophil Count 0.03 10^3/uL (0.0-0.7); Absolute Lymphocyte Count 2.12 10^3/uL (1.2-3.4); Absolute Monocyte Count 0.42 10^3/uL (0.1-0.8); Basophils % 0.8; Eosinophils % 0.5; HCT 44.2 % (40.0-50.0); HGB 15.4 g/dL (13.5-17.5); Immature Grans % 0.2; Lymphocytes % 33.5; MCH 31.2 pg (27.0-33.0); MCHC 34.8 % (32.0-36.0); MCV 89.5 fL (80-95); MPV 8.7 fL (8.0-11.0); Monocytes % 6.6; Neutrophils % 58.4; Platelet Count 305 10^3/uL (130-400); RBC 4.94 10^6/uL (4.36-5.78); RDW 12.3 % (11.8-14.1); RDW-SD 40.2 fL; WBC 6.33 10^3/uL (4.4-10.8)
[2021-11-26 15:43] LABS: ALT 33 U/L (16-63); AST 27 U/L (15-37); Albumin 4.2 g/dL (3.4-5.0); Alkaline Phosphatase 106 U/L (46-116); BUN 23 mg/dL (7-18); Bilirubin, Total 2.9 mg/dL (0.2-1.0); Calcium 9.7 mg/dL (8.5-10.1); Chloride 100 mmol/L (98-107); Glucose 165 mg/dL (74-106); Potassium 4.8 mmol/L (3.5-5.1); Sodium 137 mmol/L (136-145); Total Protein 8.3 g/dL (6.4-8.2)
[2021-11-27 13:08] LABS: HIV 1 RNA Qualitative Detected copies/mL (Undetected); HIV 1 RNA Quantitative 22 copies/mL (Undetected)
[2021-11-27 16:04] LABS: Absolute CD3 1565 Cells/uL (840-2,669); Absolute CD8 1390 Cells/uL (154-1,097); CD3 76 % (56-84); CD4 7 % (31-64); CD8 68 % (9-39)
== END 2021-11-26 04:42 | disposition home or self-care (01) ==
LOC: LBO 04:41
PROVIDERS: Internal Medicine Infectious Disease; PCP Family Medicine; Visit Provider Nurse Practitioner Family
DX: B20 Human immunodeficiency virus [HIV] disease (principal); Z79.899 Other long term (current) drug therapy
CPT/HCPCS: 36415; 80053; 87536; 85025; 86359; 86360

== ENCOUNTER 2022-01-02 17:20 | Outpatient (REF) | payer BC, SELFPAY ==
[2022-01-02 20:19] LABS: COMMENT (LAB VIEW ONLY) 79.39 mg/dL
== END 2022-01-02 17:21 | disposition home or self-care (01) ==
LOC: NCHCN 17:20
PROVIDERS: PCP Family Medicine; Visit Provider Family Medicine
DX: E10.649 Type 1 diabetes mellitus with hypoglycemia without coma (principal)
CPT/HCPCS: 82043; 82570

== ENCOUNTER 2022-04-20 03:24 | Outpatient (CLI) | payer BC, SELFPAY ==
[2022-04-20 13:47] LABS: Abs Immature Grans 0.01 10^3/uL (0.0-0.06); Absolute Basophil Count 0.04 10^3/uL (0.0-0.2); Absolute Eosinophil Count 0.04 10^3/uL (0.0-0.7); Absolute Lymphocyte Count 2.21 10^3/uL (1.2-3.4); Absolute Neutrophil Count 3.46 10^3/uL (1.2-6.7); Basophils % 0.6; Eosinophils % 0.6; HCT 43.3 % (40.0-50.0); HGB 15.4 g/dL (13.5-17.5); Immature Grans % 0.2; Lymphocytes % 35.3; MCH 32.3 pg (27.0-33.0); MCHC 35.6 % (32.0-36.0); MCV 91 fL (80-95); MPV 9.1 fL (8.0-11.0); Neutrophils % 55.3; Platelet Count 265 10^3/uL (130-400); RBC 4.77 10^6/uL (4.36-5.78); RDW 11.9 % (11.8-14.1); RDW-SD 39.5 fL; WBC 6.26 10^3/uL (4.4-10.8)
[2022-04-20 14:52] LABS: ALT 27 U/L (16-63); AST 19 U/L (15-37); Albumin 3.9 g/dL (3.4-5.0); Alkaline Phosphatase 94 U/L (46-116); Anion Gap 5.8 mmol/L (3-11); BUN 25 mg/dL (7-18); Bilirubin, Total 2.4 mg/dL (0.2-1.0); CO2 32.2 mmol/L (21.0-32.0); Calcium 9.7 mg/dL (8.5-10.1); Chloride 103 mmol/L (98-107); Estimated GFR 91.12 (mL/min/1.73m2); Glucose 80 mg/dL (74-106); Potassium 3.9 mmol/L (3.5-5.1); Sodium 141 mmol/L (136-145); Total Protein 7.7 g/dL (6.4-8.2)
[2022-04-21 13:29] LABS: 4/8 Ratio 0.09 (>=0.90); Absolute CD3 1718 Cells/uL (840-2,669); Absolute CD8 1538 Cells/uL (154-1,097); CD3 81 % (56-84); CD4 6 % (31-64); CD8 72 % (9-39)
[2022-04-23 11:36] LABS: HIV 1 RNA Qualitative Detected copies/mL (Undetected); HIV 1 RNA Quantitative <20 copies/mL (Undetected)
== END 2022-04-20 03:25 | disposition home or self-care (01) ==
LOC: LBO 03:24
PROVIDERS: PCP Family Medicine; Visit Provider Nurse Practitioner Family
DX: B20 Human immunodeficiency virus [HIV] disease (principal); Z79.899 Other long term (current) drug therapy
CPT/HCPCS: 36415; 80053; 87536; 85025; 86359; 86360

== ENCOUNTER 2022-08-12 03:19 | Outpatient (CLI) | payer BC, SELFPAY ==
[2022-08-12 10:24] LABS: Abs Immature Grans 0.01 10^3/uL (0.0-0.06); Absolute Basophil Count 0.04 10^3/uL (0.0-0.2); Absolute Eosinophil Count 0.15 10^3/uL (0.0-0.7); Absolute Lymphocyte Count 2.81 10^3/uL (1.2-3.4); Absolute Monocyte Count 0.44 10^3/uL (0.1-0.8); Absolute Neutrophil Count 2.65 10^3/uL (1.2-6.7); Basophils % 0.7; Eosinophils % 2.5; HCT 45.4 % (40.0-50.0); HGB 16.3 g/dL (13.5-17.5); Immature Grans % 0.2; Lymphocytes % 46.1; MCH 32.2 pg (27.0-33.0); MCHC 35.9 % (32.0-36.0); MCV 90 fL (80-95); MPV 8.8 fL (8.0-11.0); Monocytes % 7.2; Neutrophils % 43.3; Platelet Count 287 10^3/uL (130-400); RBC 5.06 10^6/uL (4.36-5.78); RDW 11.8 % (11.8-14.1); RDW-SD 38.5 fL
[2022-08-12 10:44] LABS: Hemoglobin A1C 5.4 % (<5.7)
[2022-08-12 10:56] LABS: Calculated LDL 76 mg/dL (<100); Cholesterol 158 mg/dL (<200); HDL Cholesterol 63 mg/dL (40-60); Triglyceride 96 mg/dL (<150)
[2022-08-13 14:17] LABS: HIV 1 RNA Qualitative Undetected copies/mL (Undetected)
[2022-08-13 15:03] LABS: Absolute CD3 2320 Cells/uL (840-2669); Absolute CD8 2051 Cells/uL (154-1097); CD3 83 % (56-84); CD4 7 % (31-64); CD8 73 % (9-39)
[2022-08-14 12:37] LABS: HBV DNA Detect/Quant, PCR Undetected IU/mL (Undetected)
== END 2022-08-12 03:20 | disposition home or self-care (01) ==
PROVIDERS: PCP Family Medicine; Visit Provider Nurse Practitioner Family
DX: E10.649 Type 1 diabetes mellitus with hypoglycemia without coma (principal); R73.01 Impaired fasting glucose; Z13.6 Encounter for screening for cardiovascular disorders; B20 Human immunodeficiency virus [HIV] disease; Z79.899 Other long term (current) drug therapy
CPT/HCPCS: 36415; 80061; 87389; 87517; 87536; 83036; 85025; 86359; 86360

== ENCOUNTER 2023-01-06 16:26 | Outpatient (REF) | payer BC, SELFPAY ==
[2023-01-06 21:05] LABS: COMMENT (LAB VIEW ONLY) 64.93 mg/dL; Microalb ug/mg Crea 13.4 ug/mg Cr
== END 2023-01-06 16:27 | disposition home or self-care (01) ==
LOC: LBN 16:26
PROVIDERS: PCP Family Medicine; Visit Provider Family Medicine
DX: E11.9 Type 2 diabetes mellitus without complications (principal)
CPT/HCPCS: 82043; 82570

== ENCOUNTER 2023-02-05 02:14 | Outpatient (CLI) | payer BC, SELFPAY ==
[2023-02-05 16:25] LABS: Abs Immature Grans 0.01 10^3/uL (0.0-0.06); Absolute Basophil Count 0.04 10^3/uL (0.0-0.2); Absolute Eosinophil Count 0.13 10^3/uL (0.0-0.7); Absolute Lymphocyte Count 2.64 10^3/uL (1.2-3.4); Absolute Monocyte Count 0.52 10^3/uL (0.1-0.8); Absolute Neutrophil Count 2.08 10^3/uL (1.2-6.7); Basophils % 0.7; Eosinophils % 2.4; HCT 40.8 % (40.0-50.0); HGB 14.9 g/dL (13.5-17.5); Immature Grans % 0.2; Lymphocytes % 48.7; MCH 32.6 pg (27.0-33.0); MCHC 36.5 % (32.0-36.0); MCV 89 fL (80-95); MPV 8.8 fL (8.0-11.0); Monocytes % 9.6; Neutrophils % 38.4; Platelet Count 250 10^3/uL (130-400); RBC 4.57 10^6/uL (4.36-5.78); RDW 11.9 % (11.8-14.1); RDW-SD 38.4 fL; WBC 5.42 10^3/uL (4.4-10.8)
[2023-02-05 16:46] LABS: Hemoglobin A1C 5.5 % (<5.7)
[2023-02-05 16:49] LABS: ALT 27 U/L (16-63); AST 35 U/L (15-37); Albumin 3.8 g/dL (3.4-5.0); Alkaline Phosphatase 76 U/L (46-116); Anion Gap 6.9 mmol/L (3-11); BUN 32 mg/dL (7-18); Bilirubin, Total 3.4 mg/dL (0.2-1.0); CO2 30.1 mmol/L (21.0-32.0); CREATININE 1.1 mg/dL (0.70-1.30); Calcium 8.9 mg/dL (8.5-10.1); Calculated LDL 60 mg/dL (<100); Chloride 102 mmol/L (98-107); Cholesterol 144 mg/dL (<200); Estimated GFR 81.28 (mL/min/1.73m2); Glucose 70 mg/dL (74-106); HDL Cholesterol 65 mg/dL (40-60); Sodium 139 mmol/L (136-145); Total Protein 7.2 g/dL (6.4-8.2); Triglyceride 97 mg/dL (<150)
[2023-02-08 13:18] LABS: HIV 1 RNA Qualitative Undetected copies/mL (Undetected)
== END 2023-02-05 02:15 | disposition home or self-care (01) ==
LOC: LBO 02:14
PROVIDERS: Nurse Practitioner Family; PCP Family Medicine; Visit Provider Family Medicine
DX: B20 Human immunodeficiency virus [HIV] disease (principal); Z79.899 Other long term (current) drug therapy
CPT/HCPCS: 36415; 80053; 80061; 87536; 83036; 85025; 86359; 86360

== ENCOUNTER 2023-02-09 17:41 | Outpatient (CLI) | payer BC, SELFPAY ==
[2023-02-10 14:34] LABS: 4/8 Ratio 0.12 (>=0.90); Absolute CD3 1333 Cells/uL (840-2669); Absolute CD8 1150 Cells/uL (154-1097); CD3 70 % (56-84); CD4 8 % (31-64); CD8 61 % (9-39)
== END 2023-02-09 17:42 | disposition home or self-care (01) ==
LOC: LBO 17:42
PROVIDERS: PCP Family Medicine; Visit Provider Nurse Practitioner Family
DX: B20 Human immunodeficiency virus [HIV] disease (principal); Z79.899 Other long term (current) drug therapy
CPT/HCPCS: 86359; 86360

== ENCOUNTER 2023-07-14 04:23 | Outpatient (CLI) | payer BC, SELFPAY ==
[2023-07-14 09:21] LABS: TSH (W/Ref FT4) 2.98 uIU/mL (0.36-3.74)
== END 2023-07-14 04:24 | disposition home or self-care (01) ==
LOC: LBO 04:23
PROVIDERS: PCP Family Medicine; Visit Provider Family Medicine
DX: E03.9 Hypothyroidism, unspecified (principal); E04.1 Nontoxic single thyroid nodule
CPT/HCPCS: 36415; 84443

== ENCOUNTER 2023-08-16 05:36 | Outpatient (CLI) | payer BC, SELFPAY ==
[2023-08-16 12:23] LABS: Abs Immature Grans 0.01 10^3/uL (0.0-0.06); Absolute Basophil Count 0.05 10^3/uL (0.0-0.2); Absolute Eosinophil Count 0.09 10^3/uL (0.0-0.7); Absolute Monocyte Count 0.52 10^3/uL (0.1-0.8); Absolute Neutrophil Count 3.48 10^3/uL (1.2-6.7); Basophils % 0.8; Eosinophils % 1.5; HCT 43.3 % (40.0-50.0); HGB 15.4 g/dL (13.5-17.5); Immature Grans % 0.2; Lymphocytes % 32.5; MCH 31.8 pg (27.0-33.0); MCHC 35.6 % (32.0-36.0); MCV 89 fL (80-95); Monocytes % 8.5; Neutrophils % 56.5; Platelet Count 276 10^3/uL (130-400); RBC 4.85 10^6/uL (4.36-5.78); RDW 11.7 % (11.8-14.1); RDW-SD 37.8 fL; WBC 6.15 10^3/uL (4.4-10.8)
[2023-08-16 12:57] LABS: ALT 26 U/L (16-63); AST 18 U/L (15-37); Alkaline Phosphatase 86 U/L (46-116); Anion Gap 2.9 mmol/L (3-11); BUN 28 mg/dL (7-18); Bilirubin, Total 1.7 mg/dL (0.2-1.0); CO2 31.1 mmol/L (21.0-32.0); Calcium 9.7 mg/dL (8.5-10.1); Chloride 103 mmol/L (98-107); Estimated GFR 90.56 (mL/min/1.73m2); Glucose 186 mg/dL (74-106); Potassium 4.6 mmol/L (3.5-5.1); Sodium 137 mmol/L (136-145); Total Protein 7.5 g/dL (6.4-8.2)
[2023-08-17 14:46] LABS: 4/8 Ratio 0.11 (>=0.90); Absolute CD3 1801 Cells/uL (840-2669); Absolute CD8 1571 Cells/uL (154-1097); CD3 78 % (56-84); CD4 8 % (31-64); CD8 68 % (9-39)
[2023-08-19 13:15] LABS: HIV 1 RNA Qualitative Undetected copies/mL (Undetected)
== END 2023-08-16 05:37 | disposition home or self-care (01) ==
PROVIDERS: PCP Family Medicine; Visit Provider Nurse Practitioner Family
DX: B20 Human immunodeficiency virus [HIV] disease (principal); Z79.899 Other long term (current) drug therapy
CPT/HCPCS: 36415; 80053; 87536; 85025; 86359; 86360

== ENCOUNTER → 2023-08-31 01:25 | Outpatient (CLI) | payer BC, SELFPAY ==
--- NOTE | 2023-08-31 07:00 | DI.US_ITS ---
Exam(s) US NEEDLE LOCAL OTHER WO RAD EXAM: left-sided thyroid nodule, TR 3,ULTRASOUND GUIDED BX.E04.1 COMPARISON: US US THYROID from 07/14/2023 TECHNIQUE: Ultrasound performed using standard protocol. FINDINGS: Sonography was provided for Dr. Burks during the performance of a thyroid nodule biopsy. Please re archie to the procedure report for complete details. DATA REPOSITORY:
--- NOTE | 2023-08-31 12:25 | PAPNONF_PTH ---
PATIENT: Jim Wesley LOC: JOHN U#:[id number] AGE/SX: 55/M ROOM: RE08/31/[address]: Rosey Vicente : 1970 BED: DIS: SPEC #: [id number] RECD: 09/01/23 12:58 STATUS: OMAYRA REQ #: [id number] JOHNSON: 08/31/23 12:[address]: Rosey Vicente DEPT: [facility] Cytology RECD BY: Vera Valdez ENTERED: 09/01/23 12:59 SP TYPE: SHAUN POSEY DR: Effie Longoria Tissues: 1 - BODY FLUID CYTO-FINE NEEDLE ASPIRATE-[facility] Procedures: BODY FLUID CYTO-FINE NEEDLE ASPIRATE-[facility] Comments: [id number] (PATH FNA CONSULT) (REFRIGERATED)
--- NOTE | 2023-08-31 13:12 | OPPNE_ITS ---
Date of service: 08/31/23 Time of Service: 13:15 Procedure Note Date of procedure: 08/31/23 Procedure: Ultrasound-guided FNA, left thyroid nodule, pathology present Procedure Diagnosis: Left thyroid nodule meeting criteria for biopsy Procedure Indications: The patient has a left-sided thyroid nodule meeting criteria for biopsy. Options were explained the patient regarding further management. Risks inclu ding bleeding, infection, and need for further treatment or biopsy were discussed at length. Consent was obtained. The below was then performed. Procedure Description: The patient was positioned in the supine position and prepped and draped with his neck slightly extended. Ultrasound was used to localize the left-sided thyroid nodule, and then 1% lidocaine with 1/100,000 epinephrine was injected in the skin and subcutaneous tissues overlying the mass. A 25-gauge needle was then passed repeatedly into the thyroid nodule under ultrasound guidance and pathology check for cellular adequacy. 1 pass was required to get cellular adequacy. 2 additional passes were made for potential Afirma testing. After ensuring adequate hemostasis, sterile dressing was applied and the patient was to sit and stand. His vital signs remained stable. He will remove the bandage tonight and not replace it. He will call with any signs of infection or if he does not hear from me with regard to pathology results within 1 week. Further care will depend upon the findings on pathology.
== END ==
PROVIDERS: PCP Family Medicine; Visit Provider Registered Nurse Maternal Newborn
DX: E04.1 Nontoxic single thyroid nodule (principal)
CPT/HCPCS: 10005; 76942; 88104

== ENCOUNTER 2024-01-19 14:43 | Outpatient (REF) | payer BC, SELFPAY ==
[2024-01-19 21:18] LABS: COMMENT (LAB VIEW ONLY) 150.41 mg/dL; Microalb ug/mg Crea 17.2 ug/mg Cr
== END 2024-01-19 14:44 | disposition home or self-care (01) ==
LOC: LBN 14:43
PROVIDERS: PCP Family Medicine; Visit Provider Family Medicine
DX: E11.9 Type 2 diabetes mellitus without complications (principal)
CPT/HCPCS: 82043; 82570

== ENCOUNTER 2024-03-29 03:27 | Outpatient (CLI) | payer BC, SELFPAY ==
[2024-03-29 14:05] LABS: Abs Immature Grans 0.01 10^3/uL (0.0-0.06); Absolute Basophil Count 0.05 10^3/uL (0.0-0.2); Absolute Eosinophil Count 0.07 10^3/uL (0.0-0.7); Absolute Lymphocyte Count 1.99 10^3/uL (1.2-3.4); Absolute Monocyte Count 0.53 10^3/uL (0.1-0.8); Absolute Neutrophil Count 3.17 10^3/uL (1.2-6.7); Basophils % 0.9 %; Eosinophils % 1.2 %; HCT 42.9 % (40.0-50.0); HGB 15.4 g/dL (13.5-17.5); Immature Grans % 0.2 %; Lymphocytes % 34.2 %; MCHC 35.9 % (32.0-36.0); MCV 92 fL (80-95); Monocytes % 9.1 %; Neutrophils % 54.4 %; Platelet Count 295 10^3/uL (130-400); RBC 4.66 10^6/uL (4.36-5.78); RDW 11.8 % (11.8-14.1); RDW-SD 39.9 fL; WBC 5.82 10^3/uL (4.4-10.8)
[2024-03-29 14:14] LABS: Hemoglobin A1C 5.4 % (<5.7)
[2024-03-29 14:35] LABS: ALT 48 U/L (16-63); AST 30 U/L (15-37); Albumin 4.1 g/dL (3.4-5.0); Alkaline Phosphatase 76 U/L (46-116); Anion Gap 3.7 mmol/L (3-11); BUN 25 mg/dL (7-18); Bilirubin, Total 2.06 mg/dL (0.2-1.0); CO2 31.3 mmol/L (21.0-32.0); Calcium 9.4 mg/dL (8.5-10.1); Calculated LDL 72 mg/dL (<100); Chloride 104 mmol/L (98-107); Cholesterol 160 mg/dL (<200); Glucose 87 mg/dL (74-106); HDL Cholesterol 74 mg/dL (40-60); Sodium 139 mmol/L (136-145); Total Protein 7.5 g/dL (6.4-8.2); Triglyceride 73 mg/dL (<150)
[2024-03-31 09:18] LABS: PSA, Screening 0.5 ng/mL (<=3.5)
[2024-04-03 12:57] LABS: HIV 1 RNA Qualitative Undetected Copys/mL (Undetected)
== END 2024-03-29 03:28 | disposition home or self-care (01) ==
PROVIDERS: PCP Family Medicine; Visit Provider Nurse Practitioner Family
DX: Z12.5 Encounter for screening for malignant neoplasm of prostate (principal); E10.649 Type 1 diabetes mellitus with hypoglycemia without coma; E11.9 Type 2 diabetes mellitus without complications; B20 Human immunodeficiency virus [HIV] disease; Z79.899 Other long term (current) drug therapy
CPT/HCPCS: 36415; 80053; 80061; 84153; 87536; 83036; 85025; 86359; 86360

== ENCOUNTER 2024-03-31 13:51 | Outpatient (CLI) | payer BC, SELFPAY ==
[2024-04-04 11:04] LABS: 4/8 Ratio 0.17 (>=0.90); Absolute CD3 1662 Cells/uL (840-2669); Absolute CD8 1391 Cells/uL (154-1097); CD3 73 % (56-84); CD4 10 % (31-64); CD8 61 % (9-39)
== END 2024-03-31 13:52 | disposition home or self-care (01) ==
LOC: LBO 13:52
PROVIDERS: PCP Family Medicine; Visit Provider Nurse Practitioner Family
DX: B20 Human immunodeficiency virus [HIV] disease (principal); Z79.899 Other long term (current) drug therapy
CPT/HCPCS: 86359; 86360

== ENCOUNTER 2024-10-02 02:09 | Outpatient (CLI) | payer BC, SELFPAY ==
[2024-10-02 14:24] LABS: ALT 30 U/L (16-63); AST 24 U/L (15-37); Alkaline Phosphatase 86 U/L (46-116); Anion Gap 6.2 mmol/L (3-11); BUN 23 mg/dL (7-18); Bilirubin, Total 1.73 mg/dL (0.2-1.0); CO2 31.8 mmol/L (21.0-32.0); Chloride 105 mmol/L (98-107); Glucose 105 mg/dL (74-106); Potassium 4.1 mmol/L (3.5-5.1); Sodium 143 mmol/L (136-145); Total Protein 7.5 g/dL (6.4-8.2)
[2024-10-02 14:39] LABS: Hemoglobin A1C 5.4 % (<5.7)
[2024-10-03 15:55] LABS: 4/8 Ratio 0.17 (>=0.90); Absolute CD3 1718 Cells/uL (840-2669); Absolute CD8 1419 Cells/uL (154-1097); CD3 75 % (56-84); CD4 11 % (31-64); CD8 62 % (9-39)
[2024-10-06 13:24] LABS: HIV 1 RNA Qualitative Undetected Copys/mL (Undetected)
== END 2024-10-02 02:10 | disposition home or self-care (01) ==
PROVIDERS: PCP Family Medicine; Visit Provider Nurse Practitioner Family
DX: B20 Human immunodeficiency virus [HIV] disease (principal); Z79.899 Other long term (current) drug therapy
CPT/HCPCS: 36415; 80053; 87536; 83036; 86359; 86360

== ENCOUNTER 2025-02-20 03:07 | Outpatient (CLI) | payer BC, SELFPAY ==
[2025-02-20 15:59] LABS: Hemoglobin A1C 5.3 % (<5.7)
[2025-02-20 17:01] LABS: ALT 38 U/L (16-63); AST 30 U/L (15-37); Albumin 4.1 g/dL (3.4-5.0); Alkaline Phosphatase 76 U/L (46-116); Anion Gap 5.8 mmol/L (3-11); BUN 20 mg/dL (7-18); Bilirubin, Total 3.4 mg/dL (0.2-1.0); CO2 30.2 mmol/L (21.0-32.0); Calcium 9.4 mg/dL (8.5-10.1); Calculated LDL 68 mg/dL (<100); Chloride 102 mmol/L (98-107); Cholesterol 166 mg/dL (<200); Estimated GFR 102.12 (mL/min/1.73m2); Glucose 125 mg/dL (74-106); HDL Cholesterol 73 mg/dL (>or=40); Potassium 4.5 mmol/L (3.5-5.1); Sodium 138 mmol/L (136-145); Total Protein 7.4 g/dL (6.4-8.2); Triglyceride 125 mg/dL (<150)
[2025-02-20 17:16] LABS: COMMENT (LAB VIEW ONLY) 46.87 mg/dL; Microalb ug/mg Crea 10.5 ug/mg Cr
== END 2025-02-20 03:08 | disposition home or self-care (01) ==
PROVIDERS: PCP Family Medicine; Visit Provider Family Medicine
DX: E11.9 Type 2 diabetes mellitus without complications (principal); E10.649 Type 1 diabetes mellitus with hypoglycemia without coma
CPT/HCPCS: 36415; 80053; 80061; 82043; 82570; 83036

== ENCOUNTER 2025-03-07 02:20 | Outpatient (CLI) | payer BC, SELFPAY ==
[2025-03-07 10:21] LABS: Abs Immature Grans 0.01 10^3/uL (0.0-0.06); HCT 43.4 % (40.0-50.0); HGB 15.6 g/dL (13.5-17.5); Immature Grans % 0.2 %; MCH 32.3 pg (27.0-33.0); MCHC 35.9 % (32.0-36.0); MCV 90 fL (80-95); MPV 8.7 fL (8.0-11.0); Platelet Count 268 10^3/uL (130-400); RBC 4.83 10^6/uL (4.36-5.78); RDW 11.4 % (11.8-14.1); RDW-SD 37.2 fL; WBC 6.58 10^3/uL (4.4-10.8)
[2025-03-09 08:06] LABS: CD3 77 % (56-84); CD4 9 % (31-64); CD8 67 % (9-39)
== END 2025-03-07 02:21 | disposition home or self-care (01) ==
LOC: LBO 02:20
PROVIDERS: PCP Family Medicine; Visit Provider Nurse Practitioner Family
DX: B20 Human immunodeficiency virus [HIV] disease (principal); Z79.899 Other long term (current) drug therapy
CPT/HCPCS: 36415; 87536; 85025; 86359; 86360

== ENCOUNTER 2025-04-27 13:57 | Outpatient (REF) | payer BC, SELFPAY ==
[2025-04-27 15:04] LABS: Glucose Negative (Negative)
[2025-04-30 12:31] LABS: Chlamydia Result Negative (Negative); GC Result Negative (Negative)
== END 2025-04-27 13:58 | disposition home or self-care (01) ==
LOC: LBN 13:57
PROVIDERS: PCP Family Medicine; Visit Provider Internal Medicine Infectious Disease
DX: R30.0 Dysuria (principal)
CPT/HCPCS: 87491; 87591; 81003